=== PATIENT | female | born 1950 | race Caucasian/White ===

== ENCOUNTER → 2016-04-08 | Outpatient (CLI) | payer OTHER ==
--- NOTE | 2016-04-09 09:19 | MA ---
Screening Digital Mammogram, With Tomosynthesis and iCAD Indication: Routine screening. Personal history of left breast cancer. Technique: Standard digital CC projections were obtained. Digital breast tomosynthesis was performe d in the MLO projection, with reconstruction at 1.0-mm slice thickness. Composite MLO views were rec onstructed. This examination was processed by the iCAD computer-aided detection system. Comparison: January 2015, November 2013, and November 2011. Breast Density: Type B. Findings: CAD was reviewed. Benign lumpectomy scar upper outer left breast is unchanged. No suspic ious microcalcifications, mass, or new architectural distortion. Impression: Benign unchanged mammograms. BI-RADS 2: Benign Finding. Recommendation: Routine screening is recommended in one year. [facility] will send a result letter to the patient. Negative mammography should not preclude additional workup of a clinically suspicious finding. The patient's information is entered into a reminder system with a target due date for her next mammo gram.
== END ==
LOC: FIMAGING 10:24
DX: Z12.31 Encounter for screening mammogram for malignant neoplasm of breast (principal); Z85.3 Personal history of malignant neoplasm of breast
CPT/HCPCS: G0202

== ENCOUNTER → 2017-04-20 | Outpatient (CLI) | payer OTHER | LOC: FIMAGING 08:49 | PROVIDERS: ATTEND Family Medicine | DX: Z12.31 Encounter for screening mammogram for malignant neoplasm of breast (principal); Z85.3 Personal history of malignant neoplasm of breast ==

== ENCOUNTER → 2018-05-11 | Outpatient (CLI) | payer OTHER | LOC: FIMAGING 09:57 | PROVIDERS: ATTEND Family Medicine | DX: Z12.31 Encounter for screening mammogram for malignant neoplasm of breast (principal); Z85.3 Personal history of malignant neoplasm of breast ==